=== PATIENT | female | born 1940 | race Caucasian/White ===

== ENCOUNTER 2020-05-02 09:36 | Outpatient (REF) | payer MEDICARE, SELFPAY ==
--- NOTE | ~2020-05-02 | MM_ITS ---
EXAMINATION: MM SCREENING DIGITAL BREAST TOMOSYNTHESIS, BILATERAL CLINICAL INFORMATION: Due for yearly. Asymptomatic. Prior history right lumpectomy and radiation in 2011 for breast cancer. Benign stereotactic biopsy of lumpectomy scar for calcifications performed 02/15/2017 (fragments of benign breast tissue with foci of scar with associated mild chronic inflammation and dystrophic microcalcifications). COMPARISON: Mammography: 03/27/2019, 02/15/2018, 08/19/2017, 02/15/2017, 02/04/2017, 02/03/2016. TECHNIQUE: Digital breast tomosynthesis is performed in both the craniocaudal and mediolateral oblique views along with computer-aided detection (CAD). Synthesized 2D images are generated from the tomosynthesis. FINDINGS: There are scattered areas of fibroglandular density (ACR BI-RADS breast composition Category b). There are post therapy changes right breast with reduced breast size and stable scarring mid 12:00 position. There are some benign coarse calcifications in each breast. Neither breast shows interval mass or architectural abnormality or abnormal calcifications. No significant changes. MM/MM tomosynthesis screening BI IMPRESSION: No mammographic evidence of malignancy. Post therapy changes right breast. ASSESSMENT: BI-RADS 2: Benign RECOMMENDATION: Routine annual mammography screening. This patient's information was entered into a reminder system with a target due date for their next mammogram.
== END 2020-05-02 09:37 | disposition home or self-care (01) ==
LOC: HO.MAMMO 09:36
PROVIDERS: PCP Internal Medicine; Visit Provider Internal Medicine
DX: Z12.31 Encounter for screening mammogram for malignant neoplasm of breast (principal)
CPT/HCPCS: 77063; 77067

== ENCOUNTER 2020-05-08 15:44 | Outpatient (REF) | payer MEDICARE, SELFPAY ==
--- NOTE | ~2020-05-08 | XR_ITS ---
EXAMINATION: XR CERVICAL SPINE CLINICAL INFORMATION: Cervical spine pain. COMPARISON: 10/01/2016 cervical spine radiographs. TECHNIQUE: 3 views of the cervical spine were obtained. FINDINGS: Again seen is a grade 1 anterolisthesis of C4 over C5. Mild disc space narrowing is seen at C5-C6. Severe degenerative disc disease is seen at C6-C7. The vertebral bodies are intact. Mild cervicothoracic scoliosis is noted. Mild to moderate multilevel facet arthropathy is seen bilaterally. The odontoid process appears intact. The prevertebral soft tissues are unremarkable. XR/XR cervical spine 3V IMPRESSION: C4-C5 grade 1 anterolisthesis and multilevel degenerative changes are similar appearance to the 2017 study. No acute abnormality.
== END 2020-05-08 15:45 | disposition home or self-care (01) ==
LOC: HO.HMGCX 15:44
PROVIDERS: PCP Internal Medicine; Visit Provider Internal Medicine
DX: M54.2 Cervicalgia (principal)
CPT/HCPCS: 72040

== ENCOUNTER 2020-05-14 13:29 | Outpatient (REF) | payer MEDICARE, SELFPAY ==
--- NOTE | ~2020-05-14 | CT_ITS ---
EXAMINATION: CT SINUS WITHOUT CONTRAST CLINICAL INFORMATION: Sinusitis COMPARISON: None TECHNIQUE: Axial images through the paranasal sinuses without contrast. Sagittal and coronal reconstructions on the technologist workstation were performed. This CT examination was performed using dose optimization techniques as appropriate, variously including the following: *Automated exposure control *Adjustment of mA and/or kV according to patient size (this includes techniques or standardized protocols for targeted exams where dose is matched to indication/reason for exam; i.e. extremities or head) *Use of iterative reconstruction technique DLP: 78 mGy-cm FINDINGS: FRONTAL SINUSES AND DRAINAGE PATHWAYS: Normal. MAXILLARY SINUSES AND DRAINAGE PATHWAYS: Normal. The infundibula are patent. ETHMOID SINUSES: Normal. SPHENOID SINUSES AND DRAINAGE PATHWAYS: Normal. The sphenoid ostia are patent. The carotid canals are covered by bone. NASAL CAVITY/NASOPHARYNX: The nasal cavity is clear. There is mild nasal septal deviation/spurring to the right. There is increased soft tissue seen in the posterior nasopharynx and visualized upper posterior oropharynx, slightly increased on the right. This is inseparable from the uvula. Appearance is worrisome for a neoplastic process. No adjacent bone destruction is seen. ADDITIONAL RELEVANT FINDINGS: No periapical disease is seen. The TMJs articulate normally. The orbits and skull base soft tissues are unremarkable. The middle ear cavities and mastoid air cells are clear. Limited evaluation demonstrates no acute intracranial findings. CT/CT sinus wo con IMPRESSION: Clear paranasal sinuses. Increased soft tissue in the posterior nasopharynx and visualized oropharynx worrisome for neoplasm. Correlation with direct visual inspection and tissue sampling recommended. 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
== END 2020-05-14 13:30 | disposition home or self-care (01) ==
LOC: HO.CT 13:29
PROVIDERS: Visit Provider Internal Medicine
DX: J01.90 Acute sinusitis, unspecified (principal)
CPT/HCPCS: 70486

== ENCOUNTER 2020-09-04 16:57 | Outpatient (REF) | payer MEDICARE, SELFPAY ==
--- NOTE | ~2020-09-04 | XR_ITS ---
EXAMINATION: CHEST 2 VIEWS CLINICAL INFORMATION: R05 - Cough . COMPARISON: . TECHNIQUE: PA and lateral views of the chest obtained. FINDINGS: The lungs are well expanded. No focal infiltrate, effusion, edema, or pneumothorax. Cardiac and mediastinal silhouettes are within normal limits for size with a mildly tortuous aorta. No acute bony abnormality seen XR/XR chest 2V IMPRESSION: No evidence of acute disease
== END 2020-09-04 16:58 | disposition home or self-care (01) ==
LOC: HO.HMGCX 16:57
PROVIDERS: PCP Internal Medicine; Visit Provider Nurse Practitioner Family
DX: R05 Cough (principal)
CPT/HCPCS: 71046

== ENCOUNTER 2020-12-17 11:37 | Outpatient (REF) | payer MEDICARE, SELFPAY ==
--- NOTE | ~2020-12-17 | XR_ITS ---
EXAMINATION: XR CHEST CLINICAL INFORMATION: Cough. COMPARISON: Chest 09/04/2020 TECHNIQUE: 2 views of the chest were obtained. FINDINGS: Both lungs are well-expanded and clear of acute pneumonic process. There is mild right apical pleural thickening and apical parenchymal scarring. There is a 3 mm nodule right lower lobe. Heart size and pulmonary vascularity is normal. No gross bony abnormality is seen XR/XR chest 2V IMPRESSION: No acute process seen. There is a right apical parenchymal scarring.
== END 2020-12-17 11:38 | disposition home or self-care (01) ==
LOC: HO.HMGCX 11:37
PROVIDERS: PCP Internal Medicine; Visit Provider Internal Medicine
DX: Z13.89 Encounter for screening for other disorder (principal)
CPT/HCPCS: 71046

== ENCOUNTER 2021-05-05 12:52 | Outpatient (REF) | payer MEDICARE, SELFPAY ==
--- NOTE | ~2021-05-05 | MM_ITS ---
EXAMINATION: MM SCREENING DIGITAL BREAST TOMOSYNTHESIS, BILATERAL CLINICAL INFORMATION: Prior history right lumpectomy and radiation in 2012 for breast cancer. Benign stereotactic biopsy of lumpectomy scar for calcifications performed 02/15/2017 (fragments of benign breast tissue with foci of scar with associated mild chronic inflammation and dystrophic microcalcifications). Due for yearly. COMPARISON: Mammography: 05/02/2020, 03/27/2019, 02/15/2018, 08/19/2017, 02/15/2017, 02/04/2017 TECHNIQUE: Digital breast tomosynthesis is performed in both the craniocaudal and mediolateral oblique views along with computer-aided detection (CAD). Synthesized 2D images are generated from the tomosynthesis. FINDINGS: There are scattered areas of fibroglandular density (ACR BI-RADS breast composition Category b). Parenchymal pattern is similar to prior studies. There is no developing density or interval mass or architectural abnormality. There are post therapy changes again noted right breast with reduced breast size and scarring mid 12:00 position. Scattered benign coarse and round and vascular calcifications are again seen in both breasts. There is biopsy clip marker again noted in the right lumpectomy scar. There are no significant changes. biomedical engineering technologist to call patient with results this afternoon. MM/MM tomosynthesis screening BI IMPRESSION: No significant changes from prior studies. Post therapy changes right breast. ASSESSMENT: BI-RADS 2: Benign RECOMMENDATION: Routine annual mammography screening. This patient's information was entered into a reminder system with a target due date for their next mammogram.
== END 2021-05-05 12:53 | disposition home or self-care (01) ==
LOC: HO.MAMMO 12:52
PROVIDERS: Visit Provider Internal Medicine
DX: Z12.31 Encounter for screening mammogram for malignant neoplasm of breast (principal)
CPT/HCPCS: 77063; 77067

== ENCOUNTER 2021-06-30 12:57 | Outpatient (REF) | payer MEDICARE, SELFPAY ==
--- NOTE | ~2021-06-30 | XR_ITS ---
EXAMINATION: CHEST AND RIGHT RIB X-RAYS CLINICAL INFORMATION: Injury. Pain. Rule out fracture. COMPARISON: Previous chest x-ray most recent November 2020 TECHNIQUE: PA and lateral chest. 3 views of the right ribs. FINDINGS: The cardiac and mediastinal contours are stable. The thoracic aorta is tortuous but appears unchanged. There is right apical pleural thickening. There may be a small 4 mm nodule at the right lung base. This is similar to previous exam. The lungs are otherwise clear. There is no pleural effusion or pneumothorax. Bony structures are unremarkable. No rib fracture is seen. XR/XR chest 2V IMPRESSION: No evidence for acute disease in the chest. No rib fracture seen.
--- NOTE | ~2021-06-30 | XR_ITS ---
EXAMINATION: CHEST AND RIGHT RIB X-RAYS CLINICAL INFORMATION: Injury. Pain. Rule out fracture. COMPARISON: Previous chest x-ray most recent November 2020 TECHNIQUE: PA and lateral chest. 3 views of the right ribs. FINDINGS: The cardiac and mediastinal contours are stable. The thoracic aorta is tortuous but appears unchanged. There is right apical pleural thickening. There may be a small 4 mm nodule at the right lung base. This is similar to previous exam. The lungs are otherwise clear. There is no pleural effusion or pneumothorax. Bony structures are unremarkable. No rib fracture is seen. XR/XR ribs RT 2V IMPRESSION: No evidence for acute disease in the chest. No rib fracture seen.
== END 2021-06-30 12:58 | disposition home or self-care (01) ==
LOC: HO.HMGCX 12:57
PROVIDERS: PCP Internal Medicine; Visit Provider Internal Medicine
DX: R05.9 Cough, unspecified (principal); R07.81 Pleurodynia
CPT/HCPCS: 71046; 71100

== ENCOUNTER 2021-09-29 14:55 | Outpatient (REF) | payer MEDICARE, SELFPAY ==
--- NOTE | ~2021-09-29 | XR_ITS ---
EXAMINATION: XR CHEST CLINICAL INFORMATION: Cough and SOB COMPARISON: None TECHNIQUE: 2 views of the chest were obtained. FINDINGS: The lungs are well-expanded and clear. There is moderate right apical pleural thickening. Heart size and pulmonary vascularity is normal. No gross bony abnormality seen. XR/XR chest 2V IMPRESSION: Mild right apical pleural thickening. The lungs are well-expanded and clear
== END 2021-09-29 14:56 | disposition home or self-care (01) ==
LOC: HO.HMGCX 14:55
PROVIDERS: PCP Internal Medicine; Visit Provider Internal Medicine
DX: R06.02 Shortness of breath (principal); R05.9 Cough, unspecified
CPT/HCPCS: 71046

== ENCOUNTER 2022-02-25 11:49 | Outpatient (REF) | payer MEDICARE, SELFPAY ==
--- NOTE | ~2022-02-25 | XR_ITS ---
EXAMINATION: XR ANKLE, RIGHT CLINICAL INFORMATION: Rule out fracture. Status post fall. COMPARISON: None. TECHNIQUE: AP, lateral, and mortise views of the right ankle. FINDINGS: There is mild medial ankle soft tissue swelling. The ankle mortise and subtalar joints are normal. No visible acute fracture, dislocation or subluxation is seen. XR/XR ankle RT 2V IMPRESSION: Mild medial ankle soft tissue swelling. No visible acute fracture or dislocation seen.
== END 2022-02-25 11:50 | disposition home or self-care (01) ==
LOC: HO.HMGCX 11:49
PROVIDERS: PCP Internal Medicine; Visit Provider Internal Medicine
DX: M25.571 Pain in right ankle and joints of right foot (principal)
CPT/HCPCS: 73600